=== PATIENT | female | born 2000 | race Caucasian/White ===

== ENCOUNTER 2021-02-01 12:38 | Emergency (ER) | payer BC ==
--- NOTE | 2021-02-01 13:20 | EDM.PDOC ---
ED HPI GENERAL MEDICAL PROBLEM - General Stated Complaint: SWOLLEN THROAT Time Seen by Provider: 02/01/21 13:15 Source of Information: Reports: Patient History Limitations: Reports: No Limitations - History of Present Illness INITIAL COMMENTS - FREE TEXT/NARRATIVE: 20-year-old lady came to the emergency room for evaluation of a very very sore throat. She was seen in the walk-in clinic yesterday and a strep test was negative. She has had a fever at home and has been taking Tylenol and ibuprofen with mild and temporary relief. She has not had any cough or congestion. She has a little bit of back pain but no dysuria or hematuria. She denies chest pain, shortness of breath, other symptoms. Throat Pain Score (Numeric/FACES): 8 - Related Data Allergies Allergy/AdvReac Type Severity Reaction Status Date / Time No Known Allergies Allergy Verified 02/01/21 15:16 Home Meds: Home Meds norgestimate-ethinyl estradioL [Snyder-Linyah 28 Tablet] 1 tab ASDIRECTED 02/01/21 [History] ED ROS GENERAL - Review of Systems Review Of Systems: See Below Constitutional: Reports: Fever HEENT: Reports: Other (Sore, swollen throat) Respiratory: Reports: No Symptoms Cardiovascular: Reports: No Symptoms Endocrine: Reports: No Symptoms GI/Abdominal: Reports: No Symptoms : Reports: No Symptoms Musculoskeletal: Reports: Back Pain Skin: Reports: No Symptoms Neurological: Reports: No Symptoms Psychiatric: Reports: No Symptoms Hematologic/Lymphatic: Reports: No Symptoms Immunologic: Reports: No Symptoms ED EXAM, GENERAL - Physical Exam Exam: See Below Exam Limited By: No Limitations General Appearance: Alert, WD/WN, No Apparent Distress Eye Exam: Bilateral Eye: EOMI Throat/Mouth: Other (Posterior oropharynx and tonsils show erythema, edema, exudate particularly on the tonsils bilaterally) Head: Atraumatic, Normocephalic Neck: Lymphadenopathy (R), Lymphadenopathy (L) Respiratory/Chest: No Respiratory Distress, Lungs Clear, Normal Breath Sounds Cardiovascular: Normal Peripheral Pulses, Regular Rate, Rhythm, No Edema, No Murmur Peripheral Pulses: 2+: Radial (L), Radial (R), Dorsalis Pedis (L), Dorsalis Pedis (R) GI/Abdominal: Normal Bowel Sounds, Soft, Non-Tender Back Exam: CVA Tenderness (R), CVA Tenderness (L) Extremities: Normal Inspection, No Pedal Edema Neurological: Alert, Oriented, CN II-XII Intact, Normal Cognition Psychiatric: Normal Affect, Normal Mood Skin Exam: Warm, Dry, Intact Lymphatic: Adenopathy Course - Vital Signs Text/Narrative:: Analysis of lab results shows leukocytosis, possible urinary tract infection patient likely has strep throat. She was given 500 mg amoxicillin p.o. will be sent home with a prescription. She is also given 500 mg Tylenol. Last Recorded V/S: Last Vital Signs Temp 37.7 C 02/01/21 13:12 Pulse 86 02/01/21 13:12 Resp 20 02/01/21 13:12 BP 131/59 L 02/01/21 13:12 Pulse Ox 99 02/01/21 13:12 - Orders/Labs/Meds Orders: Active Orders 24 hr Category Date Time Status CULTURE URINE [RM] Stat Lab 02/01/21 13:05 Received Labs: Laboratory Tests 02/01/21 02/01/21 02/01/21 Range/Units 13:05 13:40 13:45 WBC 15.7 H (3.0-10.3) x10-3/uL RBC 4.30 (3.60-5.20) x10(6)uL Hgb 12.3 (11.4-15.5) g/dL Hct 36.7 (34.2-48.2) % MCV 85.5 (76.7-100.5) fL MCH 28.5 (23.9-33.9) pg MCHC 33.4 (31.9-34.8) g/dL RDW 12.2 L (12.3-16.5) % Plt Count 157 (151-488) x10(3)uL MPV 7.4 (7.1-12.4) fL Add Manual Diff Yes Neutrophils % (Manual) 87 H (46-82) % Band Neutrophils % 3 (0-6) % Lymphocytes % (Manual) 4 L (13-37) % Monocytes % (Manual) 6 (4-12) % Hypersegmented Neuts Few Urine Color Yellow (YELLOW) Urine Appearance Slightly cloudy (CLEAR) Urine pH 6.5 (5.0-6.5) Ur Specific [place] 1.015 (1.010-1.025) Urine Protein Negative (NEGATIVE) mg/dL Urine Glucose (UA) Normal (NORMAL) mg/dL Urine Ketones 15 H (NEGATIVE) mg/dL Urine Occult Blood Negative (NEGATIVE) Urine Nitrite Negative (NEGATIVE) Urine Bilirubin Negative (NEGATIVE) Urine Urobilinogen 1 H (NEGATIVE) mg/dL Ur Leukocyte Esterase Small H (NEGATIVE) Urine RBC 0-5 (0-5) Urine WBC 5-10 H (0-5) Ur Squamous Epith Cells Moderate H (NS,R,O) Urine Bacteria Moderate H (NS) Monoscreen Negative (NEGATIVE) Meds: Medications Discontinued Medications Generic Name Dose Route Start Last Admin Trade Name Freq PRN Reason Stop Dose Admin Acetaminophen 500 mg 02/01/21 15:26 Acetaminophen 500 Mg Tab PO 02/01/21 15:27 ONETIME ONE Amoxicillin 500 mg 02/01/21 15:02/01/21 15:21 Amoxicillin 500 Mg Cap PO 02/01/21 15:10 500 mg ONETIME ONE Administration Departure - Departure Time of Disposition: 15:28 Disposition: Home, Self-Care 01 Condition: Good Clinical Impression: Strep pharyngitis, Lymphocytosis - Discharge Information *PRESCRIPTION DRUG MONITORING PROGRAM REVIEWED*: Not Applicable *COPY OF PRESCRIPTION DRUG MONITORING REPORT IN PATIENT UMU: Not Applicable Instructions: Pharyngitis, Strep Throat, Adult Referrals: PCP,None [Primary Care Provider] - Additional Instructions: Patient will be discharged with a prescription for amoxicillin 500 mg twice daily to complete 10 days. Patient advised to follow-up with primary care physician to review results of urine culture and treatment efficacy. Patient advised to alternate Tylenol and ibuprofen for pain and fever relief. Sepsis Event Note (ED) - Focused Exam Vital Signs: Vital Signs Temp Pulse Resp BP Pulse Ox 02/01/21 13:12 37.7 C 86 20 131/59 L 99 - My Orders Last 24 Hours: My Active Orders 02/01/21 13:05 CULTURE URINE [RM] Stat - Assessment/Plan Last 24 Hours: My Active Orders 02/01/21 13:05 CULTURE URINE [RM] Stat
[2021-02-01] MEDS ORDERED: Amoxicillin 500 MG Cap PO ONE (15:09)
[2021-02-01] MEDS ORDERED: Acetaminophen 500 MG Tab PO ONE (15:26)
== END 2021-02-01 15:43 | disposition home or self-care (01) ==
LOC: FB.ED 12:38
DX: J02.0 Streptococcal pharyngitis (principal); D72.820 Lymphocytosis (symptomatic)
CPT/HCPCS: 36415; 81001; 85025; 86308; 87086; 87088; 87186; 99283; A9270

== ENCOUNTER 2023-05-17 07:08 | Day surgery (SDC) | payer BC ==
[~2023-05-17 07:08] MED LIST: Lactated Ringers 1,000 ML IV SCH; Sodium Chloride 0.9% 10 ML Syringe FLUSH PRN
[2023-05-17] MEDS ORDERED: Midazolam 1 MG/ML 2 ML SDV IV ONE (07:09)
[2023-05-17] MEDS ORDERED: Propofol 200 MG/20 ML SDV IV ONE (07:09)
[2023-05-17] MEDS ORDERED: fentaNYL 100 MCG/2 ML SDV IV ONE (07:09)
[2023-05-17] MEDS ORDERED: Ondansetron 4 MG/2 ML SDV IVPUSH ONE (09:45)
== END 2023-05-17 10:50 | disposition home or self-care (01) ==
LOC: FB.SDS 07:08
PROVIDERS: ATTEND Surgery
DX: K21.9 Gastro-esophageal reflux disease without esophagitis (principal); K29.70 Gastritis, unspecified, without bleeding; K29.80 Duodenitis without bleeding; K44.9 Diaphragmatic hernia without obstruction or gangrene; Z79.899 Other long term (current) drug therapy
CPT/HCPCS: 43239; 88305; 88342; J2250; J2405; J2704; J3010; J7120